=== PATIENT | female | born 1975 | race Caucasian/White ===

== ENCOUNTER → 2022-07-23 15:17 | Outpatient (CLI) | payer OTHER, SELFPAY ==
--- NOTE | 2022-07-23 15:21 | DI.MRI.S_ITS ---
PROCEDURE: MR ANKLE LT WO CON INDICATIONS: Tarsal tunnel syndrome TECHNIQUE: Noncontrast sagittal T1 spin echo and T2 fast spin echo with fat saturation, axial proton density fast spin echo and T2 fast spin echo with fat saturation, coronal T1 spin echo and T2 fast spin echo with fat saturation through the ankle/hindfoot. COMPARISON: None. FINDINGS: Image quality: Excellent. Bones and joints: No hindfoot coalitions. No osteochondral injuries of the talar dome. Degenerative spurring is noted at the dorsal aspect of the talonavicular joint. There is mild sagging of the midfoot is suspicious for mild pes planus. A small plantar calcaneal enthesophyte demonstrates mild internal edema. Medial structures: There is mild thickening of the distal tibiospring ligament and superomedial band of the spring ligament that may be the sequela of remote prior low-grade sprains. The deep deltoid ligament fibers remain intact. The posterior tibialis, flexor digitorum longus, and flexor hallucis longus tendons are intact. The posterior tibial neurovascular bundle appears normal within the tarsal tunnel, without extrinsic mass effect. Lateral structures: The anterior talofibular, calcaneofibular, and posterior talofibular ligaments appear thickened and heterogeneous, consistent with remote prior grade 2 sprains/partial tears. The anterior and posterior tibiofibular ligaments appear intact. The peroneus longus and brevis tendons demonstrate mild tendinosis. The sinus tarsi demonstrates normal fatty signal. Anterior structures: The tibialis anterior, extensor hallucis longus, and extensor digitorum longus tendons appear intact. The dorsal talonavicular ligament appears intact. Posterior and plantar structures: Achilles tendon is intact. Medial and lateral bands of the plantar fascia are of normal thickness. No abductor digiti quinti muscle atrophy to suggest Kat neuropathy. IMPRESSION: 1. No mass or extrinsic compression is seen within the tarsal tunnel or along the visualized course of the posterior tibial nerve. 2. Mild osseous edema within a small plantar calcaneal enthesophyte, which may be related to a mild contusion or chronic repetitive stress. The adjacent proximal plantar fascia appears intact. 3. Suspected mild pes planus. 4. Remote prior grade 1 sprains of the tibiospring ligament and the superomedial band of the spring ligament. 5. Mild peroneus brevis and longus tenosynovitis 6. Remote prior grade 2 sprains of the lateral ankle ligaments. Approved by: Stefan Pena M.D. on 07/25/2022 at 11:47
--- NOTE | 2022-07-23 15:22 | DI.MRI.S_ITS ---
PROCEDURE: MR ANKLE RT WO CON INDICATIONS: Tarsal tunnel syndrome TECHNIQUE: Noncontrast sagittal T1 spin echo and T2 fast spin echo with fat saturation, axial proton density fast spin echo and T2 fast spin echo with fat saturation, coronal T1 spin echo and T2 fast spin echo with fat saturation through the ankle/hindfoot. COMPARISON: [facility], MR, MR ANKLE LT WO CON, 07/23/2022, 15:26. None. FINDINGS: Image quality: Excellent. Bones and joints: A tiny plantar calcaneal enthesophyte is seen with trace internal edema. No fracture line is seen. There is mild soft tissue edema in the adjacent plantar heel fat pad. No hindfoot coalitions. No osteochondral injuries of the talar dome. Mild degenerative spurring of the dorsal aspect of the talonavicular joint. Medial structures: Mild thickening of the distal tibiospring ligament is suspicious for a remote prior sprain. The deep fibers of the deltoid ligament are intact. Spring ligament components are grossly intact. The posterior tibialis, flexor digitorum longus, and flexor hallucis longus tendons are intact. The posterior tibial neurovascular bundle appears normal within the tarsal tunnel, without extrinsic mass effect. Lateral structures: Remote prior low-grade sprains of the anterior talofibular ligament and calcaneofibular ligament. The posterior talofibular ligament appears to be intact. The anterior and posterior tibiofibular ligaments appear intact. Mild peroneus brevis and longus tendinosis. The sinus tarsi demonstrates normal fatty signal. Anterior structures: The tibialis anterior, extensor hallucis longus, and extensor digitorum longus tendons appear intact. Posterior and plantar structures: Achilles tendon is intact. Medial and lateral bands of the plantar fascia are of normal thickness. No abductor digiti quinti muscle atrophy to suggest Kat neuropathy. IMPRESSION: 1. No abnormal mass or extrinsic compression within the tarsal tunnel or along the visualized course of the posterior tibial nerve. 2. Trace osseous edema within a tiny plantar calcaneal enthesophyte, possibly related to an osseous contusion or chronic repetitive stress. Mild edema in the overlying plantar heel fat pad. The adjacent proximal plantar fascia is intact. 3. Remote prior grade 1 sprain of the distal tibiospring ligament. 4. Remote prior low-grade sprains of the anterior talofibular ligament and calcaneofibular ligament. 5. Mild peroneus brevis and longus tendinosis. Approved by: Stefan Pena M.D. on 07/25/2022 at 12:01
== END ==
PROVIDERS: Referring Provider Podiatrist; Visit Provider Podiatrist
DX: G57.53 Tarsal tunnel syndrome, bilateral lower limbs (principal); M79.671 Pain in right foot; M79.672 Pain in left foot; S93.492A Sprain of other ligament of left ankle, initial encounter; S93.491A Sprain of other ligament of right ankle, initial encounter; S93.411A Sprain of calcaneofibular ligament of right ankle, initial encounter; M77.32 Calcaneal spur, left foot; M65.872 Other synovitis and tenosynovitis, left ankle and foot
CPT/HCPCS: 73721